=== PATIENT | male | born 1960 | race Caucasian/White ===

== ENCOUNTER 2017-01-14 20:31 | Emergency (ER) | payer MEDICARE, SELFPAY ==
[~2017-01-14 20:31] MED LIST: ACETAMINOPHEN325 MG PO; BENZTROPINE MESY1 MG PO; GLUCOPHAGE500 MG PO; GLUCOTROL5 MG PO; LAMICTAL100 MG PO; PLAVIX75 MG PO; RISPERDAL2 MG PO; VISTARIL25 MG PO; ZOCOR20 MG PO
== END 2017-01-14 22:07 | disposition home or self-care (01) ==
LOC: ER 20:31
DX: R07.9 Chest pain, unspecified (principal); R42 Dizziness and giddiness; R06.02 Shortness of breath; E11.9 Type 2 diabetes mellitus without complications; E78.5 Hyperlipidemia, unspecified; Z87.891 Personal history of nicotine dependence; Z86.73 Personal history of transient ischemic attack (TIA), and cerebral infarction without residual deficits; Z90.49 Acquired absence of other specified parts of digestive tract; Z79.02 Long term (current) use of antithrombotics/antiplatelets; Z79.899 Other long term (current) drug therapy
CPT/HCPCS: 36415